=== PATIENT | male | born 1930 | race African-American/Black ===

== ENCOUNTER 2018-07-23 21:10 | Inpatient (IN) | payer MEDICARE, OTHER ==
[~2018-07-23] VITALS: Ht 167.6 cm; Wt 53.5 kg
[~2018-07-23 21:10] MED LIST: ETOMIDATE 2MG/ML 10ML VIAL IV ONE; LACT1CAP77 PO; SODIUM CHLORIDE 0.9% 10ML VIAL ONE; VANJ5 PO; VECURONIUM BROMIDE 10 MG/VIAL IV ONE; [UNRECOGNIZED DRUG - CODE] IV
[2018-07-23] MEDS ORDERED: VANCOMYCIN 1 G PREMIX 200 ML IV ONE (22:00)
[2018-07-23] MEDS ORDERED: VECURONIUM BROMIDE 10 MG/VIAL IV ONE (22:00)
[2018-07-23] MEDS ORDERED: SODIUM CHLORIDE 0.9% 1000ML BAG (SEPSIS BOLUS) IV ONE (22:00)
[2018-07-23] MEDS ORDERED: PROPOFOL 10MG/ML 100ML 100 ML IV ONE (22:00)
[2018-07-23] MEDS ORDERED: PIPERACILLIN/TAZ 3.375G PREMIX 50 ML IV ONE (22:00)
[2018-07-23] MEDS ORDERED: ETOMIDATE 2MG/ML 10ML VIAL IV ONE (22:00)
[2018-07-23] MEDS ORDERED: NOREPINEPHRINE 4MG/250ML PMX 250 ML IV PRN (22:45)
[2018-07-23] MEDS ORDERED: NOREPINEPHRINE 4 MG in DEXT 5% WATER 246 ML IV ONE (22:45)
[2018-07-23 22:47] LABS: HEMATOCRIT. 35.3 % (42.0-52.0); HEMOGLOBIN. 11.3 g/dL (14.0-18.0); MEAN CORPUSCULAR VOLUME 99.8 fL (80.0-94.0); MEAN PLATELET VOLUME 10.5 fl (7.4-10.4); PLATELET 304 x1000/uL (130-400); RED BLOOD CELL COUNT 3.54 mill/uL (4.7-6.1); RED CELL DISTRIBUTION WIDTH 17.1 % (11.6-14.6)
[2018-07-23 22:50] LABS: INR 1.4
[2018-07-23 22:51] LABS: CHLORIDE 99 mEq/L (98-107)
[2018-07-23 22:51] LABS: CLARITY URINE TURBID (CLEAR); COLOR URINE RED (YELLOW); KETONES URINE TRACE (NEGATIVE); LEUKOCYTE ESTERASE URINE 3+ (NEGATIVE); NITRITE URINE NEGATIVE (NEGATIVE); OCCULT BLOOD URINE 3+ (NEGATIVE); PH URINE 8.5 (4.5-8.0); PROTEIN URINE 2+ (NEGATIVE)
[2018-07-23 22:57] LABS: ETHANOL BLOOD < 10 mg/dL
[2018-07-23] MEDS ORDERED: SODIUM BICARBONATE 150 MEQ in DEXTROSE 5% WATER 1,000 ML IV SCH (23:00)
[2018-07-23 23:02] LABS: *COCAINE SCREEN URINE NEGATIVE (NEGATIVE); METHADONE URINE SCREEN NEGATIVE (NEGATIVE)
[2018-07-23 23:03] LABS: *AMPHETAMINES SCREEN URINE NEGATIVE (NEGATIVE); *BARBITURATES SCREEN URINE NEGATIVE (NEGATIVE); *BENZODIAZEPINES SCREEN URINE NEGATIVE (NEGATIVE); CANNABINOID URINE SCREEN NEGATIVE (NEGATIVE); OPIATES URINE SCREEN NEGATIVE (NEGATIVE); PHENCYCLIDINE URINE SCREEN NEGATIVE (NEGATIVE)
[2018-07-23 23:06] LABS: BG BASE EXCESS -5.8 mmol/L (-2.0-2.0); BG CARBOXYHEMOGLOBIN 0.3 % (0.5-1.5); BG DEOXYHEMOGLOBIN 12.3 % (0.0-5.0); BG FRACTION INSPIRED OXYGEN 100; BG HCO3 ACT 24.7 mmol/L (22.0-26.0); BG METHEMOGLOBIN 0.4 % (0.0-1.5); BG OXYGEN SATURATION 87.6 % (92.0-98.5); BG PCO2 77.8 mmHg (35.0-45.0); BG PH 7.119 (7.350-7.450); BG PO2 73.7 mmHg (75.0-100.0); BG SAMPLE SITE LEFT RADIAL; BG TIDAL VOLUME(mL) 550 mL; BG TOTAL HEMOGLOBIN 11.3 g/dL (12.0-18.0); BG VENT MODE VENT - A/C; BG VENT RATE 14 set
[2018-07-23 23:08] LABS: PLATELET ESTIMATE NORMAL
[2018-07-24] VITALS (88 sets, daily range): BP systolic 46–134; BP diastolic 20–92
[2018-07-24 02:04] LABS: BG BASE EXCESS -5.9 mmol/L (-2.0-2.0); BG CARBOXYHEMOGLOBIN 0.1 % (0.5-1.5); BG DEOXYHEMOGLOBIN 25.8 % (0.0-5.0); BG FRACTION INSPIRED OXYGEN 100; BG HCO3 ACT 24.2 mmol/L (22.0-26.0); BG METHEMOGLOBIN 0.4 % (0.0-1.5); BG OXYGEN SATURATION 74.1 % (92.0-98.5); BG OXYHEMOGLOBIN 73.7 % (94.0-97.0); BG PCO2 72.6 mmHg (35.0-45.0); BG PO2 49.8 mmHg (75.0-100.0); BG SAMPLE SITE LEFT BRACHIAL; BG TIDAL VOLUME(mL) 550 mL; BG TOTAL HEMOGLOBIN 12.1 g/dL (12.0-18.0); BG VENT MODE VENT - A/C; BG VENT RATE 16 set
[2018-07-24] MEDS ORDERED: PHENYLEPHRINE 20 MG in DEXT 5% WATER 498 ML IV PRN (02:15)
[2018-07-24] MEDS ORDERED: NOREPINEPHRINE 8 MG in DEXT 5% WATER 492 ML IV PRN (02:15)
[2018-07-24] MEDS ORDERED: VASOPRESSIN 10 UNIT in SODIUM CHLORIDE 0.9% 99.5 ML IV PRN (02:30)
[2018-07-24] MEDS ORDERED: PHENYLEPHRINE 40 MG in DEXT 5% WATER 496 ML IV PRN (03:30)
[2018-07-24] MEDS ORDERED: NOREPINEPHRINE 16 MG in DEXT 5% WATER 484 ML IV PRN (03:30)
[2018-07-24] MEDS ORDERED: SODIUM CHLORIDE 0.9% 1,000 ML IV SCH (04:00)
[2018-07-24 05:57] LABS: HEMATOCRIT. 32.4 % (42.0-52.0); HEMOGLOBIN. 10.6 g/dL (14.0-18.0); MEAN CORPUSCULAR HEMOGLOBIN 32.5 pg (28.0-32.0); MEAN CORPUSCULAR VOLUME 99.5 fL (80.0-94.0); MEAN PLATELET VOLUME 10.2 fl (7.4-10.4); PLATELET 211 x1000/uL (130-400); RED BLOOD CELL COUNT 3.26 mill/uL (4.7-6.1); RED CELL DISTRIBUTION WIDTH 17.2 % (11.6-14.6)
[2018-07-24] MEDS ORDERED: DOPAMINE 800MG PREMIX 250 ML IV PRN (06:00)
[2018-07-24] MEDS ORDERED: BLOOD SUGAR DIAGNOSTIC STRIP TEST SCH ×2 (06:00)
[2018-07-24] MEDS ORDERED: PIPERACILLIN/TAZ 3.375G PREMIX 50 ML IV SCH (06:00)
[2018-07-24] MEDS ORDERED: DEXTROSE 50% WATER 50ML SYRINGE IV PRN (06:00)
[2018-07-24] MEDS ORDERED: PIPERACILLIN/TAZ 2.25G PREMIX 50 ML IV SCH (06:00)
[2018-07-24] MEDS ORDERED: INSULIN LISPRO 100 UNITS/ML SUBCUT SCH (06:30)
[2018-07-24] MEDS ORDERED: PANTOPRAZOLE 80 MG in SODIUM CHLORIDE 0.9% 100 ML IV SCH (08:00)
[2018-07-24] MEDS ORDERED: SODIUM BICARBONATE 7.5% 0.9 MEQ/ML 50ML SYR IV ONE (11:43)
[2018-07-24 13:46] LABS: NUCLEATED RED BLOOD CELLS 2 /100 WBC
[2018-07-24 13:47] LABS: PLATELET ESTIMATE NORMAL
[2018-07-24] MEDS ORDERED: VANCOMYCIN 750 MG PREMIX 150 ML IV SCH (16:00)
== END 2018-07-24 07:07 | disposition expired | DRG 871 ==
LOC: ER 21:50 → CVICU 23:25 → EDBEDREQTM 23:28 → EDBEDREQ 23:28 → ENRESERV 23:53 → CVICU 07-24 00:54
PROVIDERS: ADMIT Internal Medicine; ATTEND Internal Medicine
PROC: 0BH17EZ Insertion of Endotracheal Airway into Trachea, Via Natural or Artificial Opening (ICD-10-PCS; principal; 2018-07-23)
PROC: 5A1935Z Respiratory Ventilation, Less than 24 Consecutive Hours (ICD-10-PCS; 2018-07-23)
PROC: 5A12012 Performance of Cardiac Output, Single, Manual (ICD-10-PCS; 2018-07-24)
PROC: 06HM33Z Insertion of Infusion Device into Right Femoral Vein, Percutaneous Approach (ICD-10-PCS; 2018-07-24)
DX: A41.9 Sepsis, unspecified organism (principal); J18.1 Lobar pneumonia, unspecified organism; J96.91 Respiratory failure, unspecified with hypoxia; R65.21 Severe sepsis with septic shock; E43 Unspecified severe protein-calorie malnutrition; N17.9 Acute kidney failure, unspecified; N39.0 Urinary tract infection, site not specified; K92.2 Gastrointestinal hemorrhage, unspecified; Z99.11 Dependence on respirator [ventilator] status; Z68.1 Body mass index [BMI] 19.9 or less, adult; Z51.5 Encounter for palliative care; E11.65 Type 2 diabetes mellitus with hyperglycemia; I10 Essential (primary) hypertension; I46.9 Cardiac arrest, cause unspecified; Y95 Nosocomial condition; Z86.73 Personal history of transient ischemic attack (TIA), and cerebral infarction without residual deficits; Z79.84 Long term (current) use of oral hypoglycemic drugs; Z79.899 Other long term (current) drug therapy; Z95.0 Presence of cardiac pacemaker
CPT/HCPCS: 31500; 36415; 36600; 71045; 80048; 80305; 82375; 82805; 82962; 83605; 83880; 84145; 84484; 87070; 87077; 87186; 92950; 93005; 94002; 96374; 96375; 99291; A4216; C9113; G0482; J1265; J2370; J2543; J3370; J3490; J7030; J7050; J7060; J7070